=== PATIENT | female | born 1950 | race Caucasian/White ===

== ENCOUNTER → 2016-05-26 | Outpatient (CLI) | payer OTHER ==
--- NOTE | 2016-05-26 15:39 | DX ---
Pelvis - Single View Indication: Pain. Evaluate for right hip arthritis. Comparison: None. Findings: The normally mineralized bones are anatomically aligned. Bilateral hip joint spaces and p ubic symphysis are well preserved. No joint space narrowing, marginal osteophyte, or erosion. Minim al age-appropriate osteoarthritis involves the sacroiliac joints. No sclerosis or erosions along the sacroiliac joints. Severe degenerative disk and facet arthropathy are present at the L5-S1 level. Soft tissue planes are within normal limit. Numerous surgical clips overlie the low left hip. Impression: 1. Severe osteoarthritis at the lumbosacral junction and minimal osteoarthritis of the sacroiliac cheko ints. 2. Normal bilateral hips.
== END ==
LOC: BMCIMAGING 14:25
PROVIDERS: ATTEND Internal Medicine Rheumatology
DX: M47.897 Other spondylosis, lumbosacral region (principal); M47.898 Other spondylosis, sacral and sacrococcygeal region; M25.551 Pain in right hip